=== PATIENT | female | born 1985 | race Caucasian/White ===

== ENCOUNTER 2020-10-24 12:28 | Emergency (ER) | payer MEDICARE, MEDICAID, SELFPAY ==
--- NOTE | ~2020-10-24 | CT_ITS ---
EXAMINATION: CT brain wo con INDICATION: Confusion, hallucinations COMPARISON: None TECHNIQUE: Standard unenhanced head CT. The dose-length product (DLP) was 832.33 mGy-cm. The mA was a djusted according to patient size. Iterative reconstruction technique was employed. FINDINGS: There is no intracranial hemorrhage, acute infarction, or abnormal mass lesion. The ventric les are normal. There is no abnormal mass effect or midline shift. The lowry-white matter differentiat ion is normal. The basal cisterns are patent. The orbits are normal. The paranasal sinuses, mastoids and calvarium are normal. IMPRESSION: 1. No acute intracranial abnormality. Reviewed, dictated and finalized at location A. CIPAL PRODUCT MANAGER
[2020-10-24 12:27] VITALS: BP 149/74; PULSE 90; RESP 20; TEMP 36.8; O2SAT 97
--- NOTE | 2020-10-24 13:02 | ED.AMS ---
HPI - Altered Mental Status General Chief Complaint: Psychiatric Symptoms <Turner Shetty DO - Last Filed: 10/24/20 18:53> Stated Complaint: confusion <Turner Shetty DO - Last Filed: 10/24/20 18:53> Time Seen by Provider: 10/24/20 12:43 <Turner Shetty DO - Last Filed: 10/24/20 18:53> Source: patient <Turner Shetty DO - Last Filed: 10/24/20 18:53> Mode of arrival: ambulatory <Turner Shetty DO - Last Filed: 10/24/20 18:53> Limitations: no limitations <Turner Shetty DO - Last Filed: 10/24/20 18:53> History of Present Illness HPI narrative: A 35-year-old female comes into the emergency department today with complaints of wanting to see a doctor. Patient states that she was on a road trip from [place] to [place] when she stopped here. Allegedly she received a phone call stating that the person she was traveling with was bad and that she needed to get help. Patient went into a local [facility], stated that she needed to see a doctor and asked someone to call 911. Patient very distraught, rapid pressured speech. She is difficult to obtain history from as she answers very tangentially. <Turner Shetty DO - Last Filed: 10/24/20 18:53> Related Data Home Medications: Home Medications Medication Instructions Recorded Confirmed aripiprazole [Abilify] mg 10/27/20 baclofen mg 10/27/20 clonazepam 10/27/20 doxepin 10/27/20 folic acid 10/27/20 gabapentin 10/27/20 meloxicam 10/27/20 ondansetron HCl [Zofran] 10/27/20 <Turner Shetty DO - Last Filed: 10/24/20 18:53> Allergies/Adverse Reactions: Allergies Allergy/AdvReac Type Severity Reaction Status Date / Time No Known Allergies Allergy Verified 10/24/20 12:34 <Turner Shetty DO - Last Filed: 10/24/20 18:53> Review of Systems Review of Systems: ROS unobtainable: Yes unobtainable due to mental status <Turner Shetty DO - Last Filed: 10/24/20 18:53> [facility] Social History Social History: Social History Gender identity (if verbalized by the patient): Female <Turner Shetty DO - Last Filed: 10/24/20 18:53> Exam Narrative: Exam Narrative: GENERAL: Well-appearing, well-nourished, who appears extremely anxious. HEAD: Normocephalic, atraumatic. EYES: PERRLA and EOMI. ENT: Nares clear, no rhinorrhea or epistaxis. Mucous membranes moist. NECK: Supple. No adenopathy or masses. No carotid bruits or JVD CHEST: Clear to auscultation. No respiratory distress. No wheezes rales or rhonchi HEART: Regular rate and rhythm. No murmur heard. Normal peripheral pulses. ABDOMEN: Soft, nontender, nondistended, normal active bowel sounds. EXTREMITIES: Normal range of motion. No edema. SKIN: Warm, dry, no rash. NEURO: No focal deficits. Alert and oriented x3. PSYCH: Rapid, pressured speech, extremely anxious. <Turner Shetty DO - Last Filed: 10/24/20 18:53> Course Course Emergency Course: At the end of my shift, patient is to be admitted, she may receive a psych bed at [facility]. Patient signed out to Dr. Powers pending final disposition. <Turner Shetty DO - Last Filed: 10/24/20 18:53> Patient has been resting comfortably without difficulty she is still showing signs of psychosis while on my shift. The patient has not required restraint the petition was renewed and the patient was seen by the mental health screener currently they are working on placement. <Jason Powers MD - Last Filed: 10/26/20 07:11> 10/25/20 0700 care turned over to myself at shift change seen evaluate myself reviewed records including numerous amounts of medications given to control patient's agitation at this time awaiting psych placement patient still screaming out in bed attempting to get out of bed 10/25/20 1000 patient with [id number] evaluation patient continues have intermittent episodes of screaming out still attempting pe
[2020-10-24 13:14] LABS: Basophils Percent Auto 0.2 % (0.2-1.2); Hematocrit 43.1 % (37.0-47.0); Hemoglobin 15.6 g/dL (12.0-15.0); Immature Granulocyte Absolute 0.05 K/mm3 (0.00-0.031); Immature Granulocyte Percent A 0.4 % (0-0.5); Lymphocytes Absolute Auto 1.84 K/mm3 (0.9-3.2); Lymphocytes Percent Auto 14.7 % (18.3-44.2); Mean Corpuscular HGB Conc 36.2 g/dl (32-36); Mean Corpuscular Hemoglobin 34.8 pg (26-34); Mean Corpuscular Volume 96.2 fl (80-100); Mean Platelet Volume 9.1 fl (7.4-10.4); Monocytes Absolute Auto 1.1 K/mm3 (0.1-0.6); Monocytes Percent Auto 8.5 % (2.6-8.5); Neutrophils Absolute Auto 9.6 K/mm3 (1.3-6.7); Neutrophils Percent Auto 76.2 % (45.5-73.1); Platelet Count Result 373 k/mm3 (150-375); Red Blood Count 4.48 M/mm3 (4.2-5.4); Red Cell Distribution Width 13.1 % (11.5-14.5); White Blood Count 12.5 K/mm3 (4.5-10.0)
[2020-10-24] MEDS: LORazepam INJ (*CRX) 2 MG/ML VIAL IV PUSH (13:20)
[2020-10-24 13:35] LABS: Add Urine Microscopic? YES; Appearance Urine Turbid (Clear); Bacteria Urine 1+ /hpf; Bilirubin Urine Negative (Negative); Blood Urine Negative (Negative); Color Urine Yellow (Yellow); Glucose Urine UA Negative (Negative); Ketones Urine Negative (Negative); Leukocyte Esterase Ur Negative LEU/UL (Negative); Mucus Urine Heavy /lpf; Nitrate Urine Negative (Negative); Protein Urine 2+ mg/dL (Negative); Specific Grav Ur 1.014 (1.001-1.035); Squamous Epithelial Cell Urine Many /hpf (Few); Urobilinogen Urine Negative mg/dL (<2.0); WBC Urine 21-30 /hpf
[2020-10-24 14:05] LABS: Ethanol < 10 mg/dL (<10)
[2020-10-24 14:16] LABS: Alanine Aminotransferase 22 U/L (4-35); Albumin Level 5.2 g/dL (3.5-5.1); Alkaline Phosphatase 51 U/L (38-126); Anion Gap 8 mmol/L (8-16); Aspartate Amino Transferase 34 U/L (14-36); Bilirubin,Total 0.8 mg/dL (0.2-1.3); Blood Urea Nitrogen 22 mg/dL (7-17); Calcium 10.4 mg/dL (8.4-10.2); Carbon Dioxide 30 mmol/L (22-30); Chloride 99 mmol/L (98-107); Creatine Kinase 97 U/L (30-135); Estimated CRCL calculation 109 ml/min; Estimated Glomerular Filt Rate > 60; Glucose 179 mg/dL (65-105); Potassium 3.6 mmol/L (3.4-5.0); Sodium 137 mmol/L (137-145)
[2020-10-24 14:17] LABS: Amphetamine Screen Urine Negative (Negative); Barbiturate Screen Urine Negative (Negative); Benzodiazepines Screen Urine Negative (Negative); Cannabinoid Screen Urine Positive (Negative); Cocaine Screen Urine Negative (Negative); Methadone Screen Urine Negative (Negative); Opiate Screen Urine Negative (Negative); Phencyclidine Screen Urine Negative (Negative)
--- NOTE | 2020-10-24 14:40 | PC.NURSE ---
Patient moved to room 15 due to patient getting up out of bed (flight risk) and attempting to rip the cords out of the hernandez in the room. Patient medically clear and waiting for crisis evaluation.
--- NOTE | 2020-10-24 14:41 | PC.NURSE ---
patient having hallucinations at this time, taking to herself and others that are not in the room.
[2020-10-24 14:51] VITALS: BP 138/81; PULSE 68; RESP 19; O2SAT 98
--- NOTE | 2020-10-24 15:13 | PC.NURSE ---
PT TRYING TO PULL CORDS OFF THE WALL. ABLE TO REDIRECT BEHAVIOR. PT PLACED IN PSYCH SCRUBS AND MOVED PSYCH ROOM IN ROOM 15 FOR SAFETY. PT FOLLOWS COMMANDS. SITTER AT BEDSIDE.
[2020-10-24] MEDS: OLANZapine 10 MG INJ VIAL IM ×2 (17:41→21:11)
[2020-10-24] MEDS: diphenhydrAMINE HCl INJ 50 MG/ML VIAL (18:39)
[2020-10-24] MEDS: diphenhydrAMINE HCl INJ 50 MG/ML VIAL IM (18:39)
[2020-10-24] MEDS: HALOPERIDOL LACTATE 5 MG/ML VIAL IM ×2 (19:21→20:02)
[2020-10-24] MEDS: LORazepam INJ (*CRX) 2 MG/ML VIAL IM ×2 (19:24→20:10)
--- NOTE | 2020-10-24 19:26 | PC.NURSE ---
Report received from MICHAELA Arreaga. Assumed care of patient this time. Patient has sitter at bedside. Patient yelling and screaming at the hernandez, and responding to people that are not there, grabbing at things that are not there and pacing around the room.
--- NOTE | 2020-10-24 20:04 | PC.NURSE ---
Patient ran out of room yelling for her dog, patient escorted back to her room.
--- NOTE | 2020-10-24 20:23 | PC.NURSE ---
Daniel[facility] from [facility] calls to inform this nurse that they wont have a bed available until tomorrow and that they did not receive a packet for patient.
[2020-10-24] MEDS: MIDAZOLAM HCL (*CRX) 2 MG/2 ML VIAL IM (21:11)
--- NOTE | 2020-10-24 21:41 | PC.NURSE ---
Patient peed herself. Patient cleaned up and given new green scrubs. Sitter at bedside.
[2020-10-24] MEDS: KETAMINE HCL (*CRX) 500 MG/10 ML VIAL 200 MG IM (21:57)
--- NOTE | 2020-10-24 22:20 | PC.NURSE ---
Patient violently thrashing in room, hallucinating and swinging her arms and legs. Patient was given Ketamine IM, patient restrained with hard restraints to protect herself. Patient continues to violently thrash. Sitter at bedside. Patient placed on monitor. ERP notified and and restraint order obtained.
[2020-10-24 23:21] VITALS: PULSE 135; RESP 22; TEMP 36.7; O2SAT 97
[2020-10-25] VITALS (8 sets, daily range): BP systolic 111–152; BP diastolic 82–89; PULSE 62–126; RESP 17–20; TEMP 36.3–36.6; O2SAT 95–100
[2020-10-25] MEDS: MIDAZOLAM HCL (*CRX) 2 MG/2 ML VIAL 4 MG IM (00:12)
[2020-10-25] MEDS: MIDAZOLAM HCL (*CRX) 10 MG/2 ML VIAL 4 MG NASAL (00:55)
[2020-10-25] MEDS: diphenhydrAMINE HCl INJ 50 MG/ML VIAL IM (01:42)
[2020-10-25] MEDS: HALOPERIDOL LACTATE 5 MG/ML VIAL IM (01:43)
[2020-10-25] MEDS: KETAMINE HCL (*CRX) 500 MG/10 ML VIAL 250 MG IM (02:33)
[2020-10-25] MEDS: LORazepam INJ (*CRX) 2 MG/ML VIAL IV PUSH ×3 (06:05→18:01)
[2020-10-25] MEDS: SODIUM CHLORIDE 0.9% IV 1,000 ML 999 ML IV CONT (06:05)
[2020-10-25] MEDS: HALOPERIDOL LACTATE 5 MG/ML VIAL IV PUSH (06:40)
--- NOTE | 2020-10-25 08:15 | PC.NURSE ---
Pt in room thrashing on stretcher, speaking nonsensical, unable to follow directions. Sitter at bedside.
--- NOTE | 2020-10-25 08:26 | PC.NURSE ---
Mayra from crisis called to get an update on pt. She states that she will attempt to find more places for placement as well as possibly contact PD to make sure patient is not a missing person.
--- NOTE | 2020-10-25 09:12 | PC.NURSE ---
Pt incontinent of urine. this RN asked multiple times if pt needed to use bathroom. she denied. Pt placed in depends and new scrubs. Pt bed wiped down.
--- NOTE | 2020-10-25 09:25 | PC.NURSE ---
Attempting to speak with pt, pt not cooperative, unable to follow directions, pt hallucinating, grabbing at things that aren't there, talking to people that aren't there. Pt thrashing on the stretcher, sitting at bedside.
--- NOTE | 2020-10-25 09:40 | PC.NURSE ---
Faxed pt chart to [facility]
--- NOTE | 2020-10-25 10:30 | PC.NURSE ---
Attempted to take pt out of wrist restraints, Pt immediately standing up and unsteady. Pt attempting to stand on bed. Pt unable to redirect. Pt bed taken out of room and mattress laid on floor. Pt will not sit down. Pt unable to stand on her own. Per pt needs to be back in wrist retraints because she is a fall risk and a harm to herself. bed placed back in restraints at this time
[2020-10-25] MEDS: LORazepam INJ (*CRX) 2 MG/ML VIAL 1 MG IV PUSH (13:05)
--- NOTE | 2020-10-25 13:30 | PC.NURSE ---
1330: Pt given hamburger and fries, attempting to help pt eat and drink. Hard to direct pt
--- NOTE | 2020-10-25 13:30 | PC.NURSE ---
1330: Pt released from wrist restraints. Pt hallucinating, using hand as a phone, attempting to push buttons on wall, stating im driving a plane, I took an online class on how to drive a plane Pt pacing room.
--- NOTE | 2020-10-25 14:00 | PC.NURSE ---
Pt attempting to elope, very hard to redirect. Per MD, pt placed in seclusion with sitter at bedside with daniel to door.
--- NOTE | 2020-10-25 14:55 | PC.NURSE ---
Pt pacing inside of room 15. waste machine offbearer outside of room with daniel.
--- NOTE | 2020-10-25 17:35 | PC.NURSE ---
Pt in room, picking at wall, pacing, attempting to open door, yelling, taking off pants
[2020-10-25] MEDS: HALOPERIDOL LACTATE 5 MG/ML VIAL 10 MG IM (18:00)
--- NOTE | 2020-10-25 18:01 | PC.NURSE ---
Marcia from Crisis called and states that they will be sending someone out to reevaluate pt and to redo her petition.
--- NOTE | 2020-10-25 18:02 | PC.NURSE ---
Ambulated pt to the bathroom. Pt sat on toilet and played with depends. did not urinate or have bowel movement. Pt kept taking pants off, socks off. this RN stood by, Pt assisted back to room after being redirected multiple times.
--- NOTE | 2020-10-25 18:41 | PC.NURSE ---
PT given meal tray at this time.
[2020-10-25 19:32] LABS: SARS-CoV-2 RNA PCR Negative
--- NOTE | 2020-10-25 20:30 | PC.NURSE ---
Patient walked over to bathroom with sitter-patient not violent at this time. She still is talking to self, is able to be directed to sit on bed mattress that is on floor. Door to room left open, sitter at bedside for patient safety
--- NOTE | 2020-10-25 20:45 | PC.NURSE ---
Patient walking around in room -still talking to self with occasional yell outs. will sit on mattress if asked for short periods of time. Patient givn blankets and encouraged to lay down
--- NOTE | 2020-10-25 21:00 | PC.NURSE ---
Patient still talking to self but is calm-sitter present for patient safety. door remains open
--- NOTE | 2020-10-25 22:00 | PC.NURSE ---
Patient is lying on mattress-remains awake-still talking-sitter reports that sometimes shes making sense but most the time not. Patient is not offering to hurt herself or staff at this time
--- NOTE | 2020-10-25 23:00 | PC.NURSE ---
No changes in patient status-remains calm. sitter remains at door for safety
--- NOTE | 2020-10-26 01:00 | PC.NURSE ---
Patient says she wants to sleep- I just want to sleep then will start to doze off and then restart crazytalk with agitated movements of limbs per sitter
--- NOTE | 2020-10-26 07:01 | PC.NURSE ---
Food tray ordered for pt.
--- NOTE | 2020-10-26 07:16 | PC.NURSE ---
bedside report to oncoming RN
--- NOTE | 2020-10-26 07:24 | PC.NURSE ---
report given to this RN by MICHAELA Lang. Pt is laying down on bed with eye shut. Sitter is at door. Pt did request a breakfast tray.
[2020-10-26 07:31] VITALS: BP 111/80; PULSE 84; RESP 18; O2SAT 100
[2020-10-26] MEDS: NITROFURANTOIN MONOHYD MACROCR 100 MG CAP PO (09:42)
[2020-10-26 10:00] LABS: Basophils Absolute Auto 0.1 K/mm3 (0.0-0.1); Basophils Percent Auto 0.4 % (0.2-1.2); Eosinophils Absolute Auto 0.1 K/mm3 (0-0.3); Eosinophils Percent Auto 0.8 % (0-4.4); Hematocrit 37.8 % (37.0-47.0); Hemoglobin 13.3 g/dL (12.0-15.0); Immature Granulocyte Absolute 0.04 K/mm3 (0.00-0.031); Immature Granulocyte Percent A 0.3 % (0-0.5); Lymphocytes Absolute Auto 2.92 K/mm3 (0.9-3.2); Lymphocytes Percent Auto 22.1 % (18.3-44.2); Mean Corpuscular HGB Conc 35.2 g/dl (32-36); Mean Corpuscular Hemoglobin 34.4 pg (26-34); Mean Corpuscular Volume 97.7 fl (80-100); Mean Platelet Volume 9.1 fl (7.4-10.4); Monocytes Absolute Auto 1.4 K/mm3 (0.1-0.6); Monocytes Percent Auto 10.7 % (2.6-8.5); Neutrophils Absolute Auto 8.7 K/mm3 (1.3-6.7); Neutrophils Percent Auto 65.7 % (45.5-73.1); Platelet Count Result 306 k/mm3 (150-375); Red Blood Count 3.87 M/mm3 (4.2-5.4); Red Cell Distribution Width 13.2 % (11.5-14.5); White Blood Count 13.2 K/mm3 (4.5-10.0)
[2020-10-26 10:13] LABS: Alanine Aminotransferase 45 U/L (4-35); Albumin Level 4.6 g/dL (3.5-5.1); Alkaline Phosphatase 49 U/L (38-126); Anion Gap 6 mmol/L (8-16); Aspartate Amino Transferase 136 U/L (14-36); Bilirubin,Total 0.9 mg/dL (0.2-1.3); Blood Urea Nitrogen 27 mg/dL (7-17); Calcium 9.6 mg/dL (8.4-10.2); Carbon Dioxide 29 mmol/L (22-30); Chloride 106 mmol/L (98-107); Estimated CRCL calculation 109 ml/min; Estimated Glomerular Filt Rate > 60; Ethanol < 10 mg/dL (<10); Glucose 126 mg/dL (65-105); Potassium 3.6 mmol/L (3.4-5.0); Sodium 141 mmol/L (137-145)
[2020-10-26] MEDS: KETOROLAC (*BKC) 60 MG/2 ML VIAL IM (10:36)
[2020-10-26 10:39] LABS: Add Urine Microscopic? YES; Appearance Urine Cloudy (Clear); Bacteria Urine Trace /hpf; Bilirubin Urine Negative (Negative); Blood Urine Negative (Negative); Calcium Oxalate Crystals Urine Present /hpf; Color Urine Yellow (Yellow); Glucose Urine UA Negative (Negative); Ketones Urine Trace mg/dL (Negative); Leukocyte Esterase Ur Negative LEU/UL (Negative); Mucus Urine Heavy /lpf; Nitrate Urine Negative (Negative); Protein Urine 1+ mg/dL (Negative); Squamous Epithelial Cell Urine Many /hpf (Few); WBC Urine 0-3 /hpf
[2020-10-26 10:43] LABS: Thyroid Stimulating Hormone 0.283 uIU/mL (0.465-4.680)
[2020-10-26 10:59] LABS: Amphetamine Screen Urine Negative (Negative); Barbiturate Screen Urine Negative (Negative); Benzodiazepines Screen Urine Positive (Negative); Cannabinoid Screen Urine Positive (Negative); Cocaine Screen Urine Negative (Negative); Methadone Screen Urine Negative (Negative); Opiate Screen Urine Negative (Negative); Phencyclidine Screen Urine Negative (Negative); Specific Grav Ur 1.032 (1.001-1.035)
--- NOTE | 2020-10-26 13:35 | PC.NURSE ---
Spoke with patient. Patient verbalized her moms name is Mathew Jones and phone number [phone]. Pt verbalized wanted me to call mom. Call placed and left message on voicemail. Pt also stated that her head doctor was Chanell Gamino in [facility] and she is treated at [facility]. Call placed to office. Will send patient records as soon as receives release.
--- NOTE | 2020-10-26 13:51 | PC.NURSE ---
Pt able to state full name, , today's date, and she is in a hospital somewhere between [place] and [place]. Pt verbalized wanting to obtain records from psychiatrist. Release of info form signed and faxed.
[2020-10-26 16:09] VITALS: BP 135/81; PULSE 82; RESP 20; O2SAT 98
--- NOTE | 2020-10-26 23:56 | PC.NURSE ---
Received call from Analisa Spivey, states they will need this ER to call at aprox 0315 in the am for assessment/re evaluation due to time expiration.
--- NOTE | 2020-10-26 23:57 | PC.NURSE ---
Assumed care of pt at this time. Lights dimmed, sitter at bedside. Toradol ordered for pain per Dr Grady. Spoke to [facility] on phone and reported no accepting facility as of yet. Requesting phone call to come re evaluate patient at 0315 in the AM. vice president marketing & development aware.
[2020-10-27] MEDS: KETOROLAC 30 MG/ML VIAL (*BKC) IV PUSH (00:11)
[2020-10-27 01:55] VITALS: BP 132/55; PULSE 55; RESP 18; O2SAT 97
--- NOTE | 2020-10-27 02:54 | PC.NURSE ---
Pt had nosebleed per sitter, pt face cleaned with wet washcloth, no active bleeding noted. Pt ambulatory to restroom. Pt requesting ice chips - given at this time. This RN asked pt Can you tell me your name? Pt gave name, was also alert to place. Pt states I am at a hospital. This RN asked the year, pt states 2019. Asked pt if she knows the month, responds No. Pt continues to drool, contort body, twisting arms and limbs, moaning and grunting, posturing, gritting teeth. This RN asked pt Is this normal behavior for you? Can you tell me your history? Pt states Yes, this is normal. I have problems. Pt did not elaborate. Sitter remains at bedside.
[2020-10-27] MEDS: CYCLOBENZAPRINE HCL 10 MG TABLET (03:15)
--- NOTE | 2020-10-27 03:22 | PC.NURSE ---
Pt requesting pain medication for tense muscles. Per HUMA Shetty, gave Flexeril 10mg PO. Pt able to swallow pill. Pt answering questions, states has Extensive mental history as well as tardive disconsia . Pt states we can call someone for her, Melinda Plunkett, but does not have a contact number for pt. States she has contacts on her phone.
--- NOTE | 2020-10-27 03:36 | PC.NURSE ---
Spoke to Francisco per pt request, updated on pt status. States she has PMH of seizures and was just put on disability. Pt was to go on a road trip to [place] Per Francisco (pts friend and landlord), he advised the pt not to travel. He last heard from her a few days ago when she was in [place]. Pt alert and gave phone pass code to call contact numbers. Passcode [id number]. eLni phone number [phone]. Called Pat per pt request and no answer. Pat's number [phone].
--- NOTE | 2020-10-27 05:08 | PC.NURSE ---
Gloria from Crisis here to re evaluate pt. Updated on pt med list and alertness/orientation.
[2020-10-27 05:09] VITALS: BP 116/63; PULSE 63; RESP 15; O2SAT 99
--- NOTE | 2020-10-27 08:12 | PC.NURSE ---
mother called because she was told that pt admitted here. mother informed that nurse cannot give medical info without pt's permission. pt asked if nurse could speak with mother regarding medical info. pt states yes. pt spoke briefly with mother via phone. nurse to call mother later in shift with update
[2020-10-27 08:14] VITALS: BP 150/90; PULSE 107; RESP 18; O2SAT 98
--- NOTE | 2020-10-27 08:22 | PC.NURSE ---
spoke with mom: since 2003 pt began to exhibit strange behavior and drug use. prior to 2003 pt was high performing student with no problems. mom reports that pt has been dx with bipolar and schizophrenia. pt has had medication compliance issues in the past. mom was told that pt ran out of meds on way back from travels [place] west.
--- NOTE | 2020-10-27 09:20 | ECG_ITS ---
Measurements Intervals Alexander Rate: 82 P: IL: 0 QRS: 66 QRSD: 90 T: 29 QT: 400 QTc: 469 Interpretive Statements SINUS RHYTHM BASELINE ARTIFACT- I, II, III, AVR, AVL, AVF, V1-V6 BORDERLINE ECG Electronically Signed On 10-27-2020 9:39:28 DAM WORKER by To Bradley D.O.
--- NOTE | 2020-10-27 10:06 | PC.NURSE ---
rec'd call from mother regarding pt's bank activity. no banking info or cards found in pt belonging bags. mother unable to stop activity on account despite suspicious activity since pt hospitalized. pt assisted to call bank and stop all activity on account until she returns home.
[2020-10-27] MEDS: ACETAMINOPHEN 500 MG TABLET 1000 MG PO (10:44)
--- NOTE | 2020-10-27 10:44 | PC.NURSE ---
tylenol for generalized aches
--- NOTE | 2020-10-27 11:52 | PC.NURSE ---
chart has been successfully faxed to [facility] and [facility] after multiple attempts both facilities.
[2020-10-27 15:12] VITALS: BP 139/86; PULSE 86; RESP 18; TEMP 36.7; O2SAT 98
--- NOTE | 2020-10-27 17:18 | PC.NURSE ---
mom called again to check on pt. mom updated medical hx for chart. 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 social security number given to tobacco checkout clerk for verification of benefits.
[2020-10-27] MEDS: ACETAMINOPHEN 325 MG TABLET 650 MG PO (17:37)
--- NOTE | 2020-10-27 18:28 | PC.NURSE ---
Spoke with crisis for update. Facilities that have not yet denied patient are being called at this time for possible admission. If unable to find facility who will accept pt, calls will be made at the state level. Pt resting comfortably. Calm and cooperative with staff.
[2020-10-27 22:01] VITALS: BP 128/85; PULSE 78; RESP 16; O2SAT 99
--- NOTE | 2020-10-27 23:30 | PC.NURSE ---
Report given to MICHAELA Agarwal.
[2020-10-28 03:03] VITALS: BP 141/77; PULSE 76; RESP 18; O2SAT 98
--- NOTE | 2020-10-28 03:09 | PC.NURSE ---
verbal order from dr riley - motrin 600mg and flexeril 10mg.
[2020-10-28] MEDS: CYCLOBENZAPRINE HCL 10 MG TABLET PO (04:08)
[2020-10-28] MEDS: IBUPROFEN 600 MG TABLET PO (04:08)
[2020-10-28 06:33] VITALS: BP 138/79; PULSE 72; RESP 18; O2SAT 98
--- NOTE | 2020-10-28 07:59 | PC.NURSE ---
[facility] called- no beds
--- NOTE | 2020-10-28 08:24 | PC.NURSE ---
Mayra from crisis called and stated that pt has been denied from [facility], [facility], [place] and [facility]. Mayra recommends EDP calling Psychiatrist at [facility] or [facility] to ask them to reconsider accepting her.
--- NOTE | 2020-10-28 09:16 | PC.NURSE ---
46 page medical records from [id number] were faxed to us from her mother
--- NOTE | 2020-10-28 09:23 | PC.NURSE ---
Pt able to tell me her name, birthday, the correct year. When asked where she was she said probably some kind of hospital . Pt was able to tell me that she has a daughter named Leticia and that she lives with her dad. Pt states she was travelling from [place] to [place] for vacation. Pt states she is on alot of mental medications. When asked if she was having an hallucinations or delusions she said no not right now . Pt tells me she is having pain and asked if she could have something for pain. made aware.
[2020-10-28 09:33] VITALS: BP 100/50; PULSE 62; RESP 18; TEMP 36.6; O2SAT 99
--- NOTE | 2020-10-28 10:00 | PC.NURSE ---
Dr. Gerardo talked to Dr. Ramos at [facility]. He would like her chart faxed from the last 24 hours
--- NOTE | 2020-10-28 10:01 | PC.NURSE ---
pt going up to take a shower with SEBASTIAN Banegas
--- NOTE | 2020-10-28 10:44 | PC.NURSE ---
Pt has been accepted at [facility]
== END 2020-10-28 11:33 ==
PROVIDERS: Emergency Medicine; Emergency Provider Family Medicine
DX: F29 Unspecified psychosis not due to a substance or known physiological condition (principal); Z20.822 Contact with and (suspected) exposure to COVID-19; Z79.899 Other long term (current) drug therapy; F23 Brief psychotic disorder
CPT/HCPCS: 36415; 70450; 80053; 80307; 81001; 81025; 82550; 84443; 85025; 87086; 87088; 93005; 96361; 96372; 96374; 96375; 96376; 99285; A9270; C9803; J1200; J1630; J1885; J2060; J2250; J7030; U0003; U0005